=== PATIENT | male | born 2000 | race Two or more races ===

== ENCOUNTER 2025-03-08 19:55 | Emergency (ER) | payer BC ==
[~2025-03-08] VITALS: Ht 180.3 cm; Wt 77.1 kg
[2025-03-08] MEDS ORDERED: AMOX-CLAV 875-1 EACH PO (21:34)
[2025-03-08] MEDS ORDERED: DIPHTH,PERTUSS(ACELL),TET VAC 0.5 ML VIAL IM ONE (21:45)
[2025-03-08] MEDS ORDERED: CEFTRIAXONE SODIUM 1,000 MG VIAL IM ONE (21:45)
== END 2025-03-08 23:27 | disposition home or self-care (01) ==
LOC: ER 19:55
DX: S01.521A Laceration with foreign body of lip, initial encounter (principal); X58.XXXA Exposure to other specified factors, initial encounter; Y93.89 Activity, other specified; Y92.89 Other specified places as the place of occurrence of the external cause; Y99.9 Unspecified external cause status